=== PATIENT | male | born 1945 | race African-American/Black ===

== ENCOUNTER → 2016-11-09 | Outpatient (CLI) | payer MEDICARE ==
--- NOTE | 2016-11-09 12:28 | Diagnostic Imaging Report ---
Indication: COUGH Technique: 2 views of the chest Comparison: none. Findings: Lungs and pleural spaces are clear. Heart size is normal. Bones are unremarkable. Impression: No acute process
== END | disposition home or self-care (01) ==
LOC: RAD 11:26
DX: R05 Cough (principal)
CPT/HCPCS: 71020